=== PATIENT | female | born 1960 | race African-American/Black ===

== ENCOUNTER 2018-06-21 15:35 | Emergency (ER) | payer BC ==
[~2018-06-21] VITALS: Ht 175.3 cm; Wt 75.0 kg
[2018-06-21 17:03] LABS: CLARITY URINE CLEAR (CLEAR); COLOR URINE YELLOW (YELLOW); KETONES URINE NEGATIVE (NEGATIVE); LEUKOCYTE ESTERASE URINE NEGATIVE (NEGATIVE); NITRITE URINE NEGATIVE (NEGATIVE); OCCULT BLOOD URINE NEGATIVE (NEGATIVE); PH URINE 6.5 (4.5-8.0); PROTEIN URINE NEGATIVE (NEGATIVE); SPECIFIC GRAVITY URINE 1.017 (1.005-1.030)
[2018-06-21 17:13] LABS: BASOPHILS % 1.5 % (0.0-2.0); EOSINOPHILS % 4.6 % (0.0-5.0); HEMATOCRIT. 47.7 % (36.0-48.0); HEMOGLOBIN. 15.8 g/dL (12.0-16.0); LYMPHOCYTES % 23.7 % (20.0-50.0); MEAN CORPUSCULAR VOLUME 90.4 fL (81.0-99.0); MEAN PLATELET VOLUME 10.6 fl (7.4-10.4); MONOCYTES % 10.7 % (2.0-8.0); NEUTROPHILS % 59.5 % (40.0-76.0); PLATELET 150 x1000/uL (130-400); RED BLOOD CELL COUNT 5.28 mill/uL (4.2-5.4); RED CELL DISTRIBUTION WIDTH 14.8 % (11.6-14.6)
[2018-06-21] MEDS ORDERED: AMLODIPINE 10MG TABLET PO ONE (17:15)
[2018-06-21 17:17] LABS: CHLORIDE 104 mEq/L (98-107)
[2018-06-21 18:45] VITALS: BP 166/102
== END 2018-06-21 19:05 | disposition home or self-care (01) ==
LOC: ER 15:50
DX: I10 Essential (primary) hypertension (principal); R07.89 Other chest pain
CPT/HCPCS: 36415; 71045; 83880; 84484; 93005; 99284

== ENCOUNTER 2019-04-30 10:15 | Emergency (ER) | payer SELFPAY ==
[~2019-04-30] VITALS: Ht 165.1 cm; Wt 57.0 kg
[2019-04-30 10:18] VITALS: BP 122/83
== END 2019-04-30 18:35 | disposition left against medical advice (07) ==
LOC: ER 10:15
DX: Z53.21 Procedure and treatment not carried out due to patient leaving prior to being seen by health care provider (principal)